=== PATIENT | male | born 1970 | race Caucasian/White ===

== ENCOUNTER 2016-09-28 00:40 | Emergency (ER) | payer BC ==
[2016-09-28] MEDS ORDERED: LORazepam 0.5 MG Tab PO ONE ×2 (00:58→01:58)
--- NOTE | 2016-09-28 01:08 | EDM.PDOC ---
ED HPI GENERAL MEDICAL PROBLEM - General Chief Complaint: Behavioral/Psych Stated Complaint: ANXIETY ATTACK Time Seen by Provider: 09/28/16 01:00 Source of Information: Reports: Patient History Limitations: Reports: No Limitations - History of Present Illness INITIAL COMMENTS - FREE TEXT/NARRATIVE: This 45 yo male patient reports to the ED with increased anxiety and chest pain. The patient reports he has noticed increased anxiety throughout the entire day, but has noticed increased chest pain this evening. The patient reports his pain goes into his left shoulder and arm. The patient reports a history of anxiety, but her has been off medications for the past year. The patient reports he does have an appointment with Dr. Goodson tomorrow morning, but did not think he could wait at home due to his current symptoms. The patient reports increased stress due to his father moving to a alf. The patient also reports that he just got started on antibiotics and steroids this week for reactive airway. Onset: Today Duration: Constant, Getting Worse Location: Reports: Chest, Radiates to (left shoulder and arm) Quality: Reports: Ache, Dull Severity: Moderate Improves with: Reports: None Worsens with: Reports: None Associated Symptoms: Reports: Chest Pain - Related Data Allergies Allergy/AdvReac Type Severity Reaction Status Date / Time acetaminophen Allergy Indigestion Verified 09/28/16 00:56 [From Tylenol-Codeine #3] clarithromycin [From Biaxin] Allergy Indigestion Verified 09/28/16 00:56 codeine Allergy Indigestion Verified 09/28/16 00:56 [From Tylenol-Codeine #3] Home Meds: Home Meds . [No Known Home Meds] 10/17/15 [History] Past Medical History HEENT History: Reports: None Cardiovascular History: Reports: None Respiratory History: Reports: COPD, Sleep Apnea Gastrointestinal History: Reports: None Genitourinary History: Reports: None Musculoskeletal History: Reports: None Neurological History: Reports: None Psychiatric History: Reports: Anxiety, Depression Endocrine/Metabolic History: Reports: None Hematologic History: Reports: None Immunologic History: Reports: None Oncologic (Cancer) History: Reports: None Dermatologic History: Reports: None - Infectious Disease History Infectious Disease History: Reports: None - Past Surgical History Head Surgeries/Procedures: Reports: None Social & Family History - Family History Family Medical History: Noncontributory - Tobacco Use Smoking Status *Q: Never Smoker Second Hand Smoke Exposure: Yes - Caffeine Use Caffeine Use: Reports: Soda - Recreational Drug Use Recreational Drug Use: No ED ROS GENERAL - Review of Systems Review Of Systems: ROS reveals no pertinent complaints other than HPI. ED EXAM, GENERAL - Physical Exam Exam: See Below Exam Limited By: No Limitations General Appearance: Alert, WD/WN, Anxious, Moderate Distress, Obese Eye Exam: Bilateral Eye: EOMI, Normal Inspection, PERRL Ears: Normal External Exam, Normal Canal, Hearing Grossly Normal, Normal TMs Nose: Normal Inspection, Normal Mucosa, No Blood Throat/Mouth: Normal Inspection, Normal Lips, Normal Teeth, Normal Gums, Normal Oropharynx, Normal Voice, No Airway Compromise Head: Atraumatic, Normocephalic Neck: Normal Inspection, Supple, Non-Tender, Full Range of Motion Respiratory/Chest: No Respiratory Distress, Lungs Clear, Normal Breath Sounds, No Accessory Muscle Use, Chest Non-Tender Cardiovascular: Normal Peripheral Pulses, Regular Rate, Rhythm, No Edema, No Gallop, No JVD, No Murmur, No Rub GI/Abdominal: Normal Bowel Sounds, Soft, Non-Tender, No Organomegaly, No Distention, No Abnormal Bruit, No Mass, Other (obese) (Male) Exam: Deferred Rectal (Males) Exam: Deferred Back Exam: Normal Inspection, Full Range of Motion, NT Extremities: Normal Inspection, Normal Range of Motion, Non-Tender, Normal Capillary Refill, No Pedal Edema Neurological: Alert, Oriented, CN II-XII Intact, Normal Cognition, Normal Gait, Normal Reflexes, No Motor/Sensory Deficits Psychiatric: Anxious Skin Exam: Warm, Dry, Intact, Normal Color, No Rash Lymphatic: No Adenopathy Course - Vital Signs Last Recorded V/S: Last Vital Signs Temp 35.7 C 09/28/16 00:46 Pulse 79 09/28/16 00:46 Resp 18 09/28/16 00:46 BP 137/75 09/28/16 00:46 Pulse Ox 98 09/28/16 00:46 - Orders/Labs/Meds Orders: Active Orders 24 hr Category Date Time Status EKG Documentation Completion [RC] URGENT Care 09/28/16 01:02 Active Labs: Laboratory Tests 09/28/16 09/28/16 Range/Units 01:15 01:15 WBC 12.2 H (5.0-10.0) 10^3/uL RBC 5.27 (4.6-6.2) 10^6/uL Hgb 14.6 (14.0-18.0) g/dL Hct 44.3 (40.0-54.0) % MCV 84.1 (80-100) fL MCH 27.7 (27.0-34.0) pg MCHC 33.0 (33.0-35.0) g/dL Plt Count 252 (150-450) 10^3/uL Neut % (Auto) 77.8 H (42.2-75.2) % Lymph % (Auto) 13.0 L (20.5-50.1) % [place] % (Auto) 7.5 (2-8) % Eos % (Auto) 1.2 (1.0-3.0) % Baso % (Auto) 0.5 (0.0-1.0) % Sodium 138 (135-145) mmol/L Potassium 3.9 (3.6-5.0) mmol/L Chloride 103 (101-111) mmol/L Carbon Dioxide 25.0 (21.0-31.0) mmol/L Anion Gap 13.9 BUN 19 H (7-18) mg/dL Creatinine 0.9 (0.6-1.3) mg/dL Est Cr Clr Drug Dosing 111.37 mL/min Estimated GFR (MDRD) > 60 BUN/Creatinine Ratio 21.11 Glucose 131 H (74-105) mg/dL Calcium 8.9 (8.4-10.2) mg/dl Total Bilirubin 0.8 (0.2-1.0) mg/dL AST 25 (10-42) IU/L ALT 36 (10-60) IU/L Alkaline Phosphatase 75 (42-121) IU/L Troponin I < 0.02 (0.00-0.02) ng/ml Total Protein 7.8 (6.7-8.2) g/dl Albumin 4.1 (3.2-5.5) g/dl Globulin 3.7 Albumin/Globulin Ratio 1.11 Meds: Medications Discontinued Medications Generic Name Dose Route Start Last Admin Trade Name Freq PRN Reason Stop Dose Admin Lorazepam 0.5 mg 09/28/16 00:58 09/28/16 01:02 Ativan PO 09/28/16 00:59 0.5 mg ONETIME ONE Administration Departure - Departure Time of Disposition: 01:57 Disposition: Home, Self-Care 01 Condition: Fair Clinical Impression: Anxiety Instructions: Panic Attacks, [id number] Forms: ED Department Discharge Care Plan Goals: The patient was advised of the examination, lab and x-ray results during the visit. The patient was given an oral dose of Ativan while in the ED. The patient was discharged with Ativan (0.5 mg) #1 to take in 6 hours as needed and a script for Ativan (0.5 mg) #20 to take 1 by mouth 3 times per day as needed. If the patient has any additional symptoms or concerns, the patient should follow-up with his primary care facility or return to the emergency department. - My Orders Last 24 Hours: My Active Orders 09/28/16 01:02 EKG Documentation Completion [RC] URGENT - Assessment/Plan Last 24 Hours: My Active Orders 09/28/16 01:02 EKG Documentation Completion [RC] URGENT
[2016-09-28 01:47] LABS: CHLORIDE,CL 103 mmol/L (101-111); SODIUM,NA 138 mmol/L (135-145)
[2016-09-28] MEDS ORDERED: LORazepam 0.5 MG Tab ONE (01:58)
[2016-09-28 02:12] VITALS: BP 130/73
--- NOTE | 2016-09-28 22:17 | EKG ---
09/28/2016 - CONSTANCE LOGAN - This 12-lead EKG shows a normal sinus rhythm with a ventricular rate of 68. Normal axis and intervals. No acute ST-segment or T-wave changes. [facility] /[id number]
== END 2016-09-28 02:02 | disposition home or self-care (01) ==
LOC: DL.ED 00:40
DX: F41.9 Anxiety disorder, unspecified (principal); J44.9 Chronic obstructive pulmonary disease, unspecified; Z88.8 Allergy status to other drugs, medicaments and biological substances; Z88.5 Allergy status to narcotic agent
CPT/HCPCS: 36415; 80053; 84484; 85025; 93005; 99283; A9270

== ENCOUNTER 2016-12-13 22:36 | Emergency (ER) | payer BC ==
[2016-12-13] MEDS ORDERED: Acetaminophen/HYDROcodone 325-10 MG Tab PO ONE (22:37)
[2016-12-13] MEDS ORDERED: Cyclobenzaprine 10 MG Tab PO ONE (22:37)
[2016-12-13 22:45] VITALS: BP 130/78
[2016-12-13] MEDS ORDERED: Ketorolac 30 MG/ML SDV IM ONE (22:47)
--- NOTE | 2016-12-13 22:54 | EDM.PDOC ---
ED HPI GENERAL MEDICAL PROBLEM - General Chief Complaint: Back Pain or Injury Stated Complaint: SEVERE MUSCLE SPASMS IN BACK [id number] Time Seen by Provider: 12/13/16 22:47 Source of Information: Reports: Patient History Limitations: Reports: No Limitations - History of Present Illness INITIAL COMMENTS - FREE TEXT/NARRATIVE: long h/o problem on-off. present episode past few days. did go to clinic and had CAT told to take OTC Rx. tried but not helping. CAT report showed chronic multi-level degenerative disc disease. Treatments [employer]PER[employer]: Reports: Acetaminophen Right Lower Back Pain Score (Numeric/FACES): 8 - Related Data Allergies Allergy/AdvReac Type Severity Reaction Status Date / Time clarithromycin [From Biaxin] Allergy Indigestion Verified 09/28/16 00:56 codeine Allergy Indigestion Verified 09/28/16 00:56 [From Tylenol-Codeine #3] Home Meds: Home Meds . [No Known Home Meds] 10/17/15 [History] Past Medical History HEENT History: Reports: None Cardiovascular History: Reports: None Respiratory History: Reports: COPD, Sleep Apnea Gastrointestinal History: Reports: None Genitourinary History: Reports: None Musculoskeletal History: Reports: None Neurological History: Reports: None Psychiatric History: Reports: Anxiety, Depression Endocrine/Metabolic History: Reports: None Hematologic History: Reports: None Immunologic History: Reports: None Oncologic (Cancer) History: Reports: None Dermatologic History: Reports: None - Infectious Disease History Infectious Disease History: Reports: None - Past Surgical History Head Surgeries/Procedures: Reports: None Social & Family History - Family History Family Medical History: Noncontributory - Tobacco Use Smoking Status *Q: Unknown Ever Smoked Second Hand Smoke Exposure: Yes - Caffeine Use Caffeine Use: Reports: Soda - Recreational Drug Use Recreational Drug Use: No ED ROS GENERAL - Review of Systems Review Of Systems: ROS reveals no pertinent complaints other than HPI. ED EXAM,LOWER BACK PAIN/INJURY - Physical Exam Exam: See Below Exam Limited By: No Limitations General Appearance: Alert, WD/WN, Mild Distress, Moderate Distress, Other (pain) Eye Exam: Bilateral Eye: PERRL (pupils ER @ 4mm) Ears: Hearing Grossly Normal Throat/Mouth: Normal Voice, No Airway Compromise Head: Atraumatic Neck: Non-Tender, Full Range of Motion Respiratory/Chest: No Respiratory Distress Cardiovascular: Regular Rate, Rhythm GI/Abdominal: Soft, Non-Tender Extremities: Limited Range of Motion, Other (right > bilateral lumbar spasms on R/P, gait limitrd to pain) Neurological: Alert, Normal Mood/Affect, No Motor/Sensory Deficits, Oriented x 3 Psychiatric: Tearful Skin Exam: Warm, Dry, Normal Color Lymphatic: No Adenopathy Course - Vital Signs Last Recorded V/S: Last Vital Signs Temp 36.6 C 12/13/16 22:43 Pulse 85 12/13/16 22:43 Resp 20 12/13/16 22:43 BP 130/78 12/13/16 22:43 Pulse Ox 100 12/13/16 22:43 - Orders/Labs/Meds Meds: Medications Discontinued Medications Generic Name Dose Route Start Last Admin Trade Name Anurag PRN Reason Stop Dose Admin Ketorolac Tromethamine 30 mg 12/13/16 22:47 12/13/16 22:52 Toradol IM 12/13/16 22:48 30 mg ONETIME ONE Administration - Re-Assessments/Exams Free Text/Narrative Re-Assessment/Exam: 12/13/16 23:42 re-exam; feeling much better post IM toradol Departure - Departure Time of Disposition: 23:43 Disposition: Home, Self-Care 01 Condition: Good Clinical Impression: Lumbar back pain with radiculopathy affecting right lower extremity, Degenerative disc disease, lumbar - Discharge Information Instructions: Back Pain, Adult, [id number] Forms: ED Department Discharge Additional Instructions: 1) avoid bending lifting straining 2) try ice or heat to sore areas. 3) follow up at clinic for Physical Therapy rx given; flexeril 10mg bid prn spasms x 20 vicodin 5/325mg bid prn pain x 12
[2016-12-13] MEDS ORDERED: Cyclobenzaprine 10 MG Tab ONE (23:43)
[2016-12-13] MEDS ORDERED: Acetaminophen/HYDROcodone 325-10 MG Tab ONE (23:43)
== END 2016-12-13 23:51 | disposition home or self-care (01) ==
LOC: DL.ED 22:36
DX: M51.16 Intervertebral disc disorders with radiculopathy, lumbar region (principal); Z88.5 Allergy status to narcotic agent
CPT/HCPCS: 96372; 99283; J1885; A9270-GY

== ENCOUNTER 2019-04-20 13:03 | Emergency (ER) | payer BC, OTHER, SELFPAY ==
[2019-04-20] MEDS ORDERED: Sodium Chloride 0.9% 10 ML Syringe FLUSH PRN (13:10)
[2019-04-20 13:12] VITALS: BP 144/99; PULSE 110
--- NOTE | 2019-04-20 13:17 | EDM.PDOC ---
ED HPI GENERAL MEDICAL PROBLEM - General Chief Complaint: Neuro Symptoms/Deficits Stated Complaint: DIZZY, SOB Time Seen by Provider: 04/20/19 13:10 Source of Information: Reports: Patient, Old Records, RN, RN Notes Reviewed History Limitations: Reports: No Limitations - History of Present Illness INITIAL COMMENTS - FREE TEXT/NARRATIVE: Pt presents to ER from work with report that he was squatted down and leaned over at work, and as he stood he experienced a spinning dizziness and felt he was falling to the right. He also felt light headed with some nausea, and clammy /cold but moist. Pt states he had a sinus type cold and congestion with cough for the past week. He has Hx of vertigo, but has not had symptoms for over a year. Pt admits to an itching pressure and discomfort in the ears, R>L and a mild headache. He denies fall, neck pain or stiffness, chest pain, palpitations , or syncope. Onset: Today, Sudden Duration: Improving Location: Reports: Generalized Severity: Severe Improves with: Reports: None Worsens with: Reports: Movement Associated Symptoms: Reports: No Other Symptoms - Related Data Allergies Allergy/AdvReac Type Severity Reaction Status Date / Time clarithromycin [From Biaxin] Allergy Indigestion Verified 04/20/19 13:08 codeine Allergy Indigestion Verified 04/20/19 13:08 [From Tylenol-Codeine #3] Home Meds: Home Meds Budesonide/Formoterol Fumarate [Symbicort 80-4.5 MCG] 1 inh INH BID 12/15/17 [ History] Past Medical History HEENT History: Reports: None Cardiovascular History: Reports: None Respiratory History: Reports: COPD, Sleep Apnea Gastrointestinal History: Reports: None Genitourinary History: Reports: None Musculoskeletal History: Reports: None Neurological History: Reports: None Psychiatric History: Reports: Anxiety, Depression Endocrine/Metabolic History: Reports: Obesity/BMI 30+ Hematologic History: Reports: None Immunologic History: Reports: None Oncologic (Cancer) History: Reports: None Dermatologic History: Reports: None - Infectious Disease History Infectious Disease History: Reports: None - Past Surgical History Head Surgeries/Procedures: Reports: None Social & Family History - Family History Family Medical History: Noncontributory - Caffeine Use Caffeine Use: Reports: Soda - Living Situation & Occupation Occupation: Employed ED ROS GENERAL - Review of Systems Review Of Systems: Comprehensive ROS is negative, except as noted in HPI. ED EXAM, DIZZINESS - Physical Exam Exam: See Below Exam Limited By: No Limitations General Appearance: Alert, No Apparent Distress, Obese Eye Exam: Bilateral Eye: EOMI, Nystagmus (Right lateral gaze), PERRL Nystagmus: worsens with head to R, reproducible Ears: Normal External Exam, Normal Canal, TM Bulging (slight on right), TM Dullness, TM Fluid. No: Mastoid Swelling, Mastoid Tenderness Nose: No Blood, Other Throat/Mouth: Normal Inspection, Normal Lips, Normal Teeth, Normal Gums, Normal Oropharynx, Normal Voice, No Airway Compromise Head Exam: Atraumatic, Normocephalic Vertigo: worsens with head to R, reproducible Neck: Normal Inspection Respiratory/Chest: No Respiratory Distress, Lungs Clear, Normal Breath Sounds, No Accessory Muscle Use, Chest Non-Tender Cardiovascular: Regular Rate, Rhythm, Extra Beats Neurological: Alert, Normal Mood/Affect, Normal Dorsiflexion, Normal Plantar Flexion, Normal Gait, No Motor/Sensory Deficits, Oriented x 3 Back Exam: Normal Inspection Extremities: Normal Inspection Psychiatric: Anxious Skin Exam: Warm, Dry, Intact, Normal Color, No Rash Course - Vital Signs Last Recorded V/S: Last Vital Signs Temp 97.0 F 04/20/19 13:09 Pulse 110 H 04/20/19 13:09 Resp 20 04/20/19 13:09 BP 144/99 H 04/20/19 13:09 Pulse Ox 98 04/20/19 13:09 Orthostatic Blood Pressure [ 103/49 Standing] Orthostatic Blood Pressure [ 121/51 Sitting] Orthostatic Blood Pressure [ 115/55 Supine] - Orders/Labs/Meds Orders: Active Orders 24 hr Category Date Time Status Blood Glucose Check, Bedside [] ONETIME Care 04/20/19 13:10 Active EKG 12 Lead [EKG Documentation Completion] [] STAT Care 04/20/19 13:09 Active Peripheral IV Care [] . DIRECTED Care 04/20/19 13:10 Active Sodium Chloride 0.9% [Normal Saline] 1,000 ml Med 04/20/19 15:07 Active IV .BOLUS Sodium Chloride 0.9% [Saline Flush] Med 04/20/19 13:10 Active 10 ml FLUSH ASDIRECTED PRN Peripheral IV Insertion Adult [OM.PC] Stat Oth 04/20/19 13:09 Ordered Medication Orders Sodium Chloride (Normal Saline) 1,000 mls @ 999 mls/hr IV .BOLUS ONE Stop: 04/20/19 16:07 Last Admin: 04/20/19 15:19 Dose: 999 mls/hr Sodium Chloride (Saline Flush) 10 ml FLUSH ASDIRECTED PRN PRN Reason: Keep Vein Open Last Admin: 04/20/19 13:28 Dose: 10 ml Labs: Laboratory Tests 04/20/19 04/20/19 04/20/19 Range/Units 13:14 13:23 13:23 WBC 12.4 H (5.0-10.0) 10^3/uL RBC 5.30 (4.6-6.2) 10^6/uL Hgb 15.2 (14.0-18.0) g/dL Hct 44.2 (40.0-54.0) % MCV 83.4 (80-100) fL MCH 28.7 (27.0-34.0) pg MCHC 34.4 (33.0-35.0) g/dL Plt Count 218 (150-450) 10^3/uL Neut % (Auto) 69.1 (42.2-75.2) % Lymph % (Auto) 18.4 L (20.5-50.1) % [place] % (Auto) 8.8 H (2-8) % Eos % (Auto) 3.1 H (1.0-3.0) % Baso % (Auto) 0.6 (0.0-1.0) % D-Dimer, Quantitative < 100 (0-400) ng/mL Sodium (135-145) mmol/L Potassium (3.6-5.0) mmol/L Chloride (101-111) mmol/L Carbon Dioxide (21.0-31.0) mmol/L Anion Gap BUN (7-18) mg/dL Creatinine (0.6-1.3) mg/dL Est Cr Clr Drug Dosing mL/min Estimated GFR (MDRD) BUN/Creatinine Ratio Glucose (74-105) mg/dL POC Glucose 93 (70-105) mg/dl Calcium (8.4-10.2) mg/dl Total Bilirubin (0.2-1.0) mg/dL AST (10-42) IU/L ALT (10-60) IU/L Alkaline Phosphatase (42-121) IU/L Troponin I (0.00-0.02) ng/ml Total Protein (6.7-8.2) g/dl Albumin (3.2-5.5) g/dl Globulin Albumin/Globulin Ratio Lipase (22-51) U/L 04/20/19 Range/Units 13:23 WBC (5.0-10.0) 10^3/uL RBC (4.6-6.2) 10^6/uL Hgb (14.0-18.0) g/dL Hct (40.0-54.0) % MCV (80-100) fL MCH (27.0-34.0) pg MCHC (33.0-35.0) g/dL Plt Count (150-450) 10^3/uL Neut % (Auto) (42.2-75.2) % Lymph % (Auto) (20.5-50.1) % [place] % (Auto) (2-8) % Eos % (Auto) (1.0-3.0) % Baso % (Auto) (0.0-1.0) % D-Dimer, Quantitative (0-400) ng/mL Sodium 136 (135-145) mmol/L Potassium 3.9 (3.6-5.0) mmol/L Chloride 102 (101-111) mmol/L Carbon Dioxide 23.0 (21.0-31.0) mmol/L Anion Gap 14.9 BUN 20 H (7-18) mg/dL Creatinine 1.0 (0.6-1.3) mg/dL Est Cr Clr Drug Dosing 97.00 mL/min Estimated GFR (MDRD) > 60 BUN/Creatinine Ratio 20.00 Glucose 105 (74-105) mg/dL POC Glucose (70-105) mg/dl Calcium 8.9 (8.4-10.2) mg/dl Total Bilirubin 1.2 H (0.2-1.0) mg/dL AST 21 (10-42) IU/L ALT 22 (10-60) IU/L Alkaline Phosphatase 75 (42-121) IU/L Troponin I < 0.02 (0.00-0.02) ng/ml Total Protein 7.4 (6.7-8.2) g/dl Albumin 3.9 (3.2-5.5) g/dl Globulin 3.5 Albumin/Globulin Ratio 1.11 Lipase 24 (22-51) U/L Meds: Medications Generic Name Dose Route Start Last Admin Trade Name Anurag PRN Reason Stop Dose Admin Sodium Chloride 1,000 mls @ 999 mls/hr 04/20/19 15:07 04/20/19 15:19 Normal Saline IV 04/20/19 16:07 999 mls/hr .BOLUS ONE Administration Sodium Chloride 10 ml 04/20/19 13:10 04/20/19 13:28 Saline Flush FLUSH 10 ml ASDIRECTED PRN Administration Keep Vein Open Discontinued Medications Generic Name Dose Route Start Last Admin Trade Name Anurag PRN Reason Stop Dose Admin Dexamethasone 10 mg 04/20/19 15:27 04/20/19 15:33 Dexamethasone IVPUSH 04/20/19 15:28 10 mg ONETIME ONE Administration Diazepam 5 mg 04/20/19 15:27 04/20/19 15:33 Valium. PO 04/20/19 15:28 5 mg ONETIME ONE Administration Meclizine HCl 50 mg 04/20/19 15:07 04/20/19 15:19 Antivert PO 04/20/19 15:08 50 mg ONETIME ONE Administration Departure - Departure Time of Disposition: 15:36 Disposition: Home, Self-Care 01 Condition: Good Clinical Impression: Labyrinthitis of right ear, Vertigo - Discharge Information *PRESCRIPTION DRUG MONITORING PROGRAM REVIEWED*: Not Applicable *COPY OF PRESCRIPTION DRUG MONITORING REPORT IN PATIENT ANA: Not Applicable Instructions: Vertigo, [id number], Labyrinthitis, [id number] Forms: ED Department Discharge Additional Instructions: Rx: Meclizine 25mg Follow up in clinic if not improved in 2 to 3 days. Return to ER if worse at any time. Sepsis Event Note - Evaluation Sepsis Screening Result: No Definite Risk - Focused Exam Vital Signs: Vital Signs Temp Pulse Resp BP Pulse Ox 04/20/19 13:09 97.0 F 110 H 20 144/99 H 98 Date Exam was Performed: 04/20/19 Time Exam was Performed: 15:44 - My Orders Last 24 Hours: My Active Orders 04/20/19 13:09 EKG 12 Lead [EKG Documentation Completion] [RC] STAT Peripheral IV Insertion Adult [OM.PC] Stat 04/20/19 13:10 Blood Glucose Check, Bedside [RC] ONETIME Peripheral IV Care [RC] . DIRECTED Sodium Chloride 0.9% [Saline Flush] 10 ml FLUSH ASDIRECTED PRN 04/20/19 15:07 Sodium Chloride 0.9% [Normal Saline] 1,000 ml IV .BOLUS - Assessment/Plan Last 24 Hours: My Active Orders 04/20/19 13:09 EKG 12 Lead [EKG Documentation Completion] [RC] STAT Peripheral IV Insertion Adult [OM.PC] Stat 04/20/19 13:10 Blood Glucose Check, Bedside [RC] ONETIME Peripheral IV Care [RC] . DIRECTED Sodium Chloride 0.9% [Saline Flush] 10 ml FLUSH ASDIRECTED PRN 04/20/19 15:07 Sodium Chloride 0.9% [Normal Saline] 1,000 ml IV .BOLUS
[2019-04-20 14:09] LABS: ANION GAP 14.9; CHLORIDE,CL 102 mmol/L (101-111); SODIUM,NA 136 mmol/L (135-145)
--- NOTE | 2019-04-20 14:32 | CR ---
EXAMINATION: Chest 1V Frontal SEX: Male AGE: 48 years CLINICAL HISTORY: 48-year-old obese male who experienced a syncopal episode. INTERPRETATION: Upright AP portable chest. 1. Less than optimal inspiratory effort (pickwickian) male with normal cardiac silhouette. 2. No pulmonary vascular congestion, cephalization of flow, alveolar edema or dependent effusion. 3. No lung mass, hilar lymphadenopathy or focal lobar pneumonia. 4. No atelectasis/collapse. 5. No pneumothorax or pneumomediastinum. Midline tracheal airway unremarkable. CONCLUSION: No acute cardiopulmonary abnormality.
[2019-04-20] MEDS ORDERED: Sodium Chloride 0.9% 1,000 ML IV ONE (15:07)
[2019-04-20] MEDS ORDERED: Meclizine 12.5 MG Tab PO ONE (15:07)
[2019-04-20] MEDS ORDERED: Diazepam 5 MG Tab PO ONE (15:27)
[2019-04-20] MEDS ORDERED: Dexamethasone 4 MG/ML SDV IVPUSH ONE (15:27)
== END 2019-04-20 15:45 | disposition home or self-care (01) ==
LOC: DL.ED 13:03
DX: H83.01 Labyrinthitis, right ear (principal); J44.9 Chronic obstructive pulmonary disease, unspecified; E66.9 Obesity, unspecified; Z68.41 Body mass index [BMI] 40.0-44.9, adult; Z88.5 Allergy status to narcotic agent; Z88.1 Allergy status to other antibiotic agents
CPT/HCPCS: 36415; 71045; 80053; 82962; 83690; 84484; 85025; 85379; 93005; 96374; 99284; A9270; J1100; J7030

== ENCOUNTER 2019-08-22 08:07 | Emergency (ER) | payer BC, OTHER ==
[2019-08-22] MEDS ORDERED: Cephalexin 500 MG Cap PO ONE ×2 (08:08→08:23)
[2019-08-22] MEDS ORDERED: Mupirocin Oint 22 GM Tube TOP ONE (08:24)
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
[2019-08-22] MEDS ORDERED: Cephalexin 500 MG Cap ONE (08:33)
[2019-08-22 08:51] VITALS: BP 128/49; PULSE 76
== END 2019-08-22 08:53 | disposition home or self-care (01) ==
LOC: DL.ED 08:07
DX: T65.94XA Toxic effect of unspecified substance, undetermined, initial encounter (principal); T25.521A Corrosion of first degree of right foot, initial encounter; L03.115 Cellulitis of right lower limb; E66.9 Obesity, unspecified; Z68.41 Body mass index [BMI] 40.0-44.9, adult; Z88.1 Allergy status to other antibiotic agents; Z88.5 Allergy status to narcotic agent
CPT/HCPCS: 16020; 99283; A9270

== ENCOUNTER 2020-06-23 10:28 | Emergency (ER) | payer BC, OTHER, SELFPAY ==
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
[2020-06-23 12:02] VITALS: BP 117/56; PULSE 53
== END 2020-06-23 11:44 | disposition home or self-care (01) ==
LOC: DL.ED 10:28
DX: Z77.098 Contact with and (suspected) exposure to other hazardous, chiefly nonmedicinal, chemicals (principal); J44.9 Chronic obstructive pulmonary disease, unspecified; E66.9 Obesity, unspecified; Z88.1 Allergy status to other antibiotic agents; Z88.5 Allergy status to narcotic agent
CPT/HCPCS: 99282

== ENCOUNTER 2023-09-13 23:02 | Emergency (ER) | payer BC ==
[2023-09-13 23:23] VITALS: BP 125/78; PULSE 85
[2023-09-13] MEDS: Silver Nitrate Applicator Each TOP ONE (23:45)
== END 2023-09-13 23:59 | disposition home or self-care (01) ==
LOC: DL.ED 23:02
DX: R04.0 Epistaxis (principal); J44.9 Chronic obstructive pulmonary disease, unspecified; Z88.1 Allergy status to other antibiotic agents; Z88.5 Allergy status to narcotic agent; Z79.51 Long term (current) use of inhaled steroids; Z79.899 Other long term (current) drug therapy; Z86.16 Personal history of COVID-19
CPT/HCPCS: 30901; 99283; 99283-25